=== PATIENT | male | born 1950 | race Caucasian/White ===

== ENCOUNTER 2021-03-06 08:22 | Day surgery (SDC) | payer OTHER ==
[2021-03-01 14:25] VITALS: BMI 23.9
[2021-03-06 11:34] VITALS: BP 130/72; PULSE 50; TEMP 97.3
== END 2021-03-06 11:36 | disposition home or self-care (01) ==
LOC: FASU-ENDO 08:22
PROVIDERS: ATTEND Internal Medicine Gastroenterology
PROC: 0D5P8ZZ Destruction of Rectum, Via Natural or Artificial Opening Endoscopic (ICD-10-PCS; 2021-03-06)
PROC: 0DJD8ZZ Inspection of Lower Intestinal Tract, Via Natural or Artificial Opening Endoscopic (ICD-10-PCS; principal; 2021-03-06 10:41)
DX: Z12.11 Encounter for screening for malignant neoplasm of colon (principal); K62.5 Hemorrhage of anus and rectum; K62.7 Radiation proctitis
CPT/HCPCS: 82962

== ENCOUNTER 2021-08-21 06:30 | Day surgery (SDC) | payer OTHER ==
[2021-08-21 07:40] VITALS: BMI 23.9
[2021-08-21] MEDS ORDERED: PROPOFOL 20 ML ONE ×4 (07:48)
[2021-08-21] MEDS ORDERED: LIDOCAINE HCL/PF 2% SDV 5ML VIAL ONE (07:48)
[2021-08-21 09:10] VITALS: PULSE 40; TEMP 97.5
[2021-08-21 09:33] VITALS: BP 141/63
== END 2021-08-21 09:30 | disposition home or self-care (01) ==
LOC: FASU-ENDO 06:30
PROVIDERS: ATTEND Internal Medicine Gastroenterology
PROC: 0D5H8ZZ Destruction of Cecum, Via Natural or Artificial Opening Endoscopic (ICD-10-PCS; principal; 2021-08-21 08:28)
DX: K62.5 Hemorrhage of anus and rectum (principal); K55.20 Angiodysplasia of colon without hemorrhage; K62.7 Radiation proctitis
CPT/HCPCS: 82962

== ENCOUNTER 2023-07-08 07:46 | Day surgery (SDC) | payer OTHER ==
[2023-07-03 16:01] VITALS: BMI 29.7
[2023-07-08] MEDS ORDERED: GLYCOPYRROLATE 0.2 MG/1 ML VIAL ONE (09:08)
[2023-07-08 09:56] VITALS: TEMP 97
[2023-07-08 09:59] VITALS: BP 112/62; PULSE 72; RESP 18
== END 2023-07-08 09:55 | disposition home or self-care (01) ==
LOC: FASU-ENDO 07:46
PROVIDERS: ATTEND Internal Medicine Gastroenterology
PROC: 0DJD8ZZ Inspection of Lower Intestinal Tract, Via Natural or Artificial Opening Endoscopic (ICD-10-PCS; principal; 2023-07-08 09:09)
DX: Z12.11 Encounter for screening for malignant neoplasm of colon (principal)
CPT/HCPCS: 82962